=== PATIENT | male | born 1960 | race Caucasian/White ===

== ENCOUNTER 2016-10-09 15:38 | Emergency (ER) | payer OTHER ==
[2016-10-09 15:52] VITALS: TEMP 99
--- NOTE | 2016-10-09 16:24 | EDPHY ---
H & P Time Seen by Provider: 10/09/16 15:52 HPI/ROS: CHIEF COMPLAINT: Request detox HISTORY OF PRESENT ILLNESS: 56-year-old male presents to the emergency department requesting detox from alcohol and oxycodone. The patient has a history of chronic back pain and has been using oxycodone for over 5 years. The patient states that he has now been abusing this and has been addicted to this medication. He would like to get off of this medication. He also states that he drinks alcohol daily. His last use of alcohol within 9 o'clock this morning and he had a bloody ivonne and 3 beers. He last used 50 mg of oxycodone around noon today. The patient presents to the emergency department with his . He is here voluntarily. He has never had an alcohol withdrawal seizure. He denies suicidal homicidal ideation. He has never had been in inpatient rehab. Currently he has no complaints. REVIEW OF SYSTEMS: Constitutional: No fever, no chills. Eyes: No double or blurry vision. ENT: No sore throat. Respiratory: No cough, no shortness of breath. Cardiac: No chest pain. Gastrointestinal: No abdominal pain, vomiting or diarrhea. Genitourinary: No dysuria. Musculoskeletal: No neck or back pain. Skin: No rashes. Neurological: No headache. Past Medical/Surgical History: Chronic back pain, narcotic dependence, alcoholism Social History: Smoking Status: Current every day smoker Physical Exam: General Appearance: Alert, no distress. Not tremulous. Eyes: Pupils equal and round. Extraocular motions are all intact. ENT: Mouth: Mucous membranes moist. Respiratory: No wheezing, rhonchi, or rales, lungs are clear to auscultation. Cardiovascular: Regular rate and rhythm. Gastrointestinal: Abdomen is soft and nontender, no masses, no rebound or guarding, bowel sounds normal. Neurological: Alert and oriented x 3, cranial nerves II through XII grossly intact Skin: Warm and dry, no rashes. Musculoskeletal: Nontender to palpate along the cervical, thoracic or lumbar spine. Neck is supple. Extremities: Full range of motion and no peripheral edema. Psychiatric: Patient is oriented X 3, there is no agitation. Constitutional: Initial Vital Signs Temperature (C) 37.2 C 10/09/16 15:47 Heart Rate 90 10/09/16 15:47 Respiratory Rate 15 10/09/16 15:47 Blood Pressure 171/88 H 10/09/16 15:47 O2 Sat (%) 98 10/09/16 15:47 O2 Delivery Mode Room Air Allergies/Adverse Reactions: beeswax Allergy (Verified 10/09/16 15:46) Home Medications: Medication Instructions Recorded ASPIRIN 10/09/16 Atenolol 10/09/16 oxyCODONE HCL 10/09/16 Medical Decision Making ED Course/Re-evaluation: 56-year-old male presents requesting inpatient detox for alcohol and oxycodone. The patient already call his insurance company, [employer], and they advised he come to the emergency department for evaluation. Once the patient is medically cleared, he will be evaluated by [facility]. [facility] is aware. The patient tested positive for benzodiazepines in his urine. His states that she gave him a half a tablet of Xanax earlier this morning. The patient states that he does otherwise take any other benzodiazepines. Patient was evaluated by mental health rice dryer mechanic, Heather, and the patient will be admitted to [facility] involuntarily for alcohol and opiate addiction. The patient is not suicidal homicidal. He is not on a hold. He is here voluntarily. [facility] will await his arrival. His was instructed that she may drive him to [facility]. The family is comfortable being discharged. Differential Diagnosis: Including but not limited to alcohol withdrawal, seizure, electrolyte abnormality, depression - Data Points Laboratory Results: Laboratory Results 10/09/16 16:11 10/09/16 16:11 10/09/16 10/09/16 10/09/16 16:11 16:11 16:11 WBC 7.11 10^3/uL 10^3/uL (3.80-9.50) RBC 4.70 10^6/uL 10^6/uL (4.40-6.38) Hgb 15.3 g/dL g/dL (13.7-17.5) Hct 42.3 % % (40.0-51.0) MCV 90.0 fL fL (81.5-99.8) MCH 32.6 pg pg (27.9-34.1) MCHC 36.2 g/dL g/dL (32.4-36.7) RDW 12.8 % % (11.5-15.2) Plt Count 185 10^3/uL 10^3/uL (150-400) MPV 9.1 fL fL (8.7-11.7) Neut % (Auto) 60.3 % % (39.3-74.2) Lymph % (Auto) 26.2 % % (15.0-45.0) Armstrong % (Auto) 10.3 % % (4.5-13.0) Eos % (Auto) 2.7 % % (0.6-7.6) Baso % (Auto) 0.4 % % (0.3-1.7) Nucleat RBC Rel Count 0.0 % % (0.0-0.2) Absolute Neuts (auto) 4.29 10^3/uL 10^3/uL (1.70-6.50) Absolute Lymphs (auto) 1.86 10^3/uL 10^3/uL (1.00-3.00) Absolute Monos (auto) 0.73 10^3/uL 10^3/uL (0.30-0.80) Absolute Eos (auto) 0.19 10^3/uL 10^3/uL (0.03-0.40) Absolute Basos (auto) 0.03 10^3/uL 10^3/uL (0.02-0.10) Absolute Nucleated RBC 0.00 10^3/uL 10^3/uL (0-0.01) Immature Gran % 0.1 % % (0.0-1.1) Immature Gran # 0.01 10^3/uL 10^3/uL (0.00-0.10) Sodium 134 mEq/L mEq/L (134-144) Potassium 4.0 mEq/L mEq/L (3.5-5.2) Chloride 100 mEq/L mEq/L (97-110) Carbon Dioxide 25 mEq/l mEq/l (22-31) Anion Gap 9 mEq/L mEq/L (8-16) BUN 5 mg/dL L mg/dL (7-23) Creatinine 0.8 mg/dL mg/dL (0.7-1.3) Estimated GFR > 60 Glucose 80 mg/dL mg/dL (70-100) Calcium 9.4 mg/dL mg/dL (8.5-10.4) Urine Opiates Screen NEGATIVE (NEGATIVE) Urine Barbiturates NEGATIVE (NEGATIVE) Ur Phencyclidine Scrn NEGATIVE (NEGATIVE) Ur Amphetamine Screen NEGATIVE (NEGATIVE) U Benzodiazepines Scrn NON-NEGATIVE H (NEGATIVE) Urine Cocaine Screen NEGATIVE (NEGATIVE) U Marijuana (THC) Screen NEGATIVE (NEGATIVE) Departure - Departure Disposition: Home, Routine, Self-Care Clinical Impression: Alcoholism, Narcotic dependence Condition: Good Instructions: Alcohol Intoxication (ED), Opioid Dependence (ED) Additional Instructions: Go directly to [facility] for your alcohol and opiate addiction. Referrals: LAKISHA WESTON [Other] - As per Instructions [facility] 24 Hours [Outside] - As per Instructions
[2016-10-09 16:44] LABS: % IMMATURE GRANULYOCYTES 0.1 % (0.0-1.1); ABSOLUTE IMMATURE GRANULOCYTES 0.01 10^3/uL (0.00-0.10); ADD DIFF? NO; ADD MORPH? NO; ADD SCAN? NO; ATYPICAL LYMPHOCYTE FLAG 0 (0-99); FRAGMENT RBC FLAG 0 (0-99); HEMATOCRIT 42.3 % (40.0-51.0); HEMOGLOBIN 15.3 g/dL (13.7-17.5); LEFT SHIFT FLG 0 (0-99); LIPEMIA HEMOLYSIS FLAG 90 (0-99); MEAN CELL HEMOGLOBIN 32.6 pg (27.9-34.1); MEAN CELL HEMOGLOBIN CONCENTR. 36.2 g/dL (32.4-36.7); MEAN PLATELET VOLUME 9.1 fL (8.7-11.7); PLATELET CLUMPS FLAG 20 (0-99); PLATELET COUNT 185 10^3/uL (150-400); RED CELL DISTRIBUTION WIDTH 12.8 % (11.5-15.2)
[2016-10-09 16:49] LABS: CALCIUM 9.4 mg/dL (8.5-10.4); CARBON DIOXIDE 25 mEq/l (22-31); CHLORIDE 100 mEq/L (97-110); CREATININE 0.8 mg/dL (0.7-1.3); GLOMERULAR FILTRATION RATE > 60; GLUCOSE 80 mg/dL (70-100); SODIUM 134 mEq/L (134-144)
[2016-10-09 16:59] LABS: ANION GAP 9 mEq/L (8-16)
[2016-10-09 18:00] VITALS: BP 173/90; PULSE 55; RESP 16; O2SAT 96
== END 2016-10-09 18:00 | disposition home or self-care (01) ==
DX: F10.20 Alcohol dependence, uncomplicated (principal); F11.20 Opioid dependence, uncomplicated; F17.200 Nicotine dependence, unspecified, uncomplicated
CPT/HCPCS: 80305